=== PATIENT | male | born 1995 | race Two or more races ===

== ENCOUNTER 2017-08-10 14:01 | Emergency (ER) | payer OTHER ==
[~2017-08-10] VITALS: Ht 165.1 cm; Wt 82.1 kg
[~2017-08-10 14:01] MED LIST: AMOX875T10 PO
[2017-08-10 14:11] VITALS: BP 138/87
[2017-08-10] MEDS ORDERED: LIDOcaine 1% 30ml preserv. free vial IJ ONE (14:30)
[2017-08-10] MEDS ORDERED: HYDROcodone/acetaminophen 10/325mg tab PO ONE (14:35)
[2017-08-10] MEDS ORDERED: sulfamethoxazole/trimethoprim DS (800/160mg) tablet PO ONE (14:35)
[2017-08-10] MEDS ORDERED: HYDR-565 PO (15:15)
[2017-08-10] MEDS ORDERED: SULF1TAB49 PO (15:15)
== END 2017-08-10 15:21 | disposition home or self-care (01) ==
LOC: ER 14:01
DX: L03.011 Cellulitis of right finger (principal); F17.200 Nicotine dependence, unspecified, uncomplicated
CPT/HCPCS: 26010; 99283; A6449; J3490; 26011; 99284

== ENCOUNTER 2023-10-18 10:30 | Emergency (ER) | payer MEDICAID ==
[~2023-10-18] VITALS: Ht 165.1 cm; Wt 68.0 kg
[2023-10-18 10:54] VITALS: BP 141/90; PULSE 71; RESP 15; O2SAT 100
[2023-10-18] MEDS ORDERED: SULF1TAB49 PO (12:04)
[2023-10-18] MEDS ORDERED: CEPH-585 PO (12:04)
[2023-10-18 12:25] VITALS: TEMP 98
== END 2023-10-18 12:27 | disposition home or self-care (01) ==
LOC: ER 10:31
DX: S91.101A Unspecified open wound of right great toe without damage to nail, initial encounter (principal); Z79.899 Other long term (current) drug therapy; X58.XXXA Exposure to other specified factors, initial encounter; Y93.89 Activity, other specified; Y92.89 Other specified places as the place of occurrence of the external cause; Y99.8 Other external cause status
CPT/HCPCS: 99283

== ENCOUNTER 2023-11-22 11:27 | Emergency (ER) | payer MEDICAID ==
[~2023-11-22] VITALS: Ht 165.1 cm; Wt 80.1 kg
[2023-11-22 11:40] VITALS: BP 144/102; PULSE 67; RESP 14; TEMP 98.1; O2SAT 99
[2023-11-22] MEDS ORDERED: CEPH-585 PO (13:53)
[2023-11-22] MEDS: cephalexin 250mg capsule PO ONE (13:57)
== END 2023-11-22 13:59 | disposition home or self-care (01) ==
LOC: ER 11:28
DX: L03.115 Cellulitis of right lower limb (principal)
CPT/HCPCS: 99283